=== PATIENT | female | born 1945 | race Caucasian/White ===

== ENCOUNTER 2017-11-08 20:12 | Emergency (ER) | payer MEDICARE ==
[2017-11-08 22:01] LABS: Alanine Aminotransferase 21 units/L (7-56); BUN/Creatinine Ratio 20; Blood Urea Nitrogen 10 mg/dL (7-17); Calcium 9.2 mg/dL (8.4-10.2); Hemolysis Index 8
[2017-11-08 22:18] LABS: Hematocrit 48.5 % (30.3-42.9); Hemoglobin 16.4 gm/dl (10.1-14.3); Mean Corpuscular HGB Conc 34 % (30-34); Mean Corpuscular Hemoglobin 31 pg (28-32); Mean Corpuscular Volume 92 fl (79-97); Platelet Count 232 K/mm3 (140-440); Red Blood Count 5.26 M/mm3 (3.65-5.03); Red Cell Distribution Width 13.8 % (13.2-15.2)
[2017-11-09] MEDS ORDERED: LEVAQUIN 500MG/100ML 500 MG/100 ML BAG IV ONE (00:57)
--- NOTE | 2017-11-09 01:02 | Emergency Department Report ---
ED Abdominal Pain HPI - General Chief Complaint: Urogenital-Female Stated Complaint: CAN NOT URINATE Time Seen by Provider: 11/09/17 00:52 Source: patient Mode of arrival: Wheelchair Limitations: No Limitations - History of Present Illness Initial Comments: Patient is 72 years old female with history of CABG and hypertension. Patient presented to the ER complaining of inability to urinate and constipation associated with lower abdominal pain for the last 3 days. Patient has is translating, he stated that there is no urine output since yesterday morning. She also had a low-grade fever. MD Complaint: abdominal pain -: days(s) Location: suprapubic Radiation: none Migration to: no migration Severity: moderate Severity scale (0 -10): 4 Quality: cramping, fullness Associated Symptoms: nausea - Related Data Allergies Allergy/AdvReac Type Severity Reaction Status Date / Time Penicillins Allergy Unknown Verified 11/08/17 21:01 ED Review of Systems ROS: Stated complaint: CAN NOT URINATE Other details as noted in HPI Comment: All other systems reviewed and negative Respiratory: denies: cough, shortness of breath, SOB with exertion Cardiovascular: denies: chest pain, palpitations Gastrointestinal: abdominal pain, nausea. denies: diarrhea, constipation, hematemesis, hematochezia Neurological: denies: headache, numbness, paresthesias ED Past Medical Hx - Past Medical History Hx Diabetes: Yes (pre-diabetics) Hx Arthritis: Yes Additional medical history: pt cannot walk due to osteroarthritis, uses wheelchair - Surgical History Hx Open Heart Surgery: Yes Additional Surgical History: Cabbage 4stents - Social History Smoking Status: Never Smoker Substance Use Type: None ED Physical Exam - General Limitations: No Limitations General appearance: alert, in no apparent distress - Head Head exam: Present: atraumatic, normocephalic, normal inspection - Eye Eye exam: Present: normal appearance, PERRL - ENT ENT exam: Present: normal exam, normal orophraynx, mucous membranes moist - Neck Neck exam: Present: normal inspection, full ROM. Absent: tenderness, meningismus - Respiratory Respiratory exam: Present: normal lung sounds bilaterally. Absent: respiratory distress, wheezes, rales, rhonchi, stridor, accessory muscle use, decreased breath sounds, prolonged expiratory - Cardiovascular Cardiovascular Exam: Present: regular rate, normal rhythm, normal heart sounds - GI/Abdominal GI/Abdominal exam: Present: soft, tenderness (suprapubic), normal bowel sounds. Absent: distended, guarding, rebound, rigid, mass, bruit, pulsatile mass, hernia - Rectal Rectal exam: Present: normal rectal tone, hemorrhoids. Absent: black stool, bloody stool, fecal impaction, mass, tenderness - Extremities Exam Extremities exam: Present: normal inspection, full ROM, normal capillary refill - Back Exam Back exam: Present: normal inspection, full ROM. Absent: tenderness, CVA tenderness (R), CVA tenderness (L), muscle spasm, paraspinal tenderness, vertebral tenderness - Neurological Exam Neurological exam: Present: alert, oriented X3, CN II-XII intact, normal gait - Skin Skin exam: Present: warm, intact, normal color ED Course Vital Signs 11/08/17 11/09/17 20:53 03:33 Temperature 99.4 F 98.6 F Pulse Rate 104 H 91 H Respiratory 18 17 Rate Blood Pressure 137/88 Blood Pressure 125/74 [Left] O2 Sat by Pulse 97 97 Oximetry - Reevaluation(s) Reevaluation #1: 11/09/17 04:15 Patient stated that she is feeling much better. ED Medical Decision Making - Lab Data Result diagrams: 11/08/17 21:31 11/08/17 21:31 - Radiology Data Radiology results: report reviewed CT abdomen and pelvis showed probable prostatitis. - Medical Decision Making Patient stated that she is feeling better. CT abdomen and pelvis showed prostatitis. Patient had constipation and urinary retention. Virk catheter inserted in the ER then 900 mL. Patient received Levaquin IV. We'll leave the Virk catheter in place and patient will need to follow-up with our primary care physician. Patient also need a referral to a surgeon for hemorrhoids. I gave her doctor Sabino To Follow with. Critical care attestation.: If time is entered above; I have spent that time in minutes in the direct care of this critically ill patient, excluding procedure time. ED Disposition Clinical Impression: Abdominal pain, Urine retention, Constipation, Proctitis, Hemorrhoid Disposition: TO HOME OR SELFCARE Is pt being admited?: No Condition: Stable Instructions: Proctitis (ED), Hemorrhoids (ED), Acute Urinary Retention in Women (ED), Constipation (ED) Referrals: PRIMARY CARE, [Primary Care Provider] - 3-5 Days CHENTE MCRAE DO [Staff Physician] - 3-5 Days JENNIFER BANGURA MD [Staff Physician] - 3-5 Days
[2017-11-09 02:10] LABS: Bilirubin,Urine NEG (Negative); Blood,Urine NEG (Negative); Color,Urine Yellow (Yellow); Protein,Urine <15 mg/dL mg/dL (Negative); Urobilinogen,Urine < 2.0 mg/dL (<2.0)
--- NOTE | 2017-11-09 03:42 | Cat Scan Report ---
FINAL REPORT EXAM: CT ABDOMEN PELVIS W CON HISTORY: abdominal pain TECHNIQUE: Routine axial imaging was obtained of the abdomen and pelvis following the intravenous injection of 100 cc of Omnipaque 300. Delayed imaging was obtained through the kidneys ureters and bladder. Routine sagittal coronal reconstructions otherwise were obtained. FINDINGS: The lung bases do not show any infiltrates or effusions. There is a small hiatal hernia. The liver is normal size reveals slightly diminished attenuation suggesting hepatic steatosis. There are small cysts in the right hepatic lobe measure up to 6 millimeters in diameter. The gallbladder is normal size reveal several dependent stones. The biliary tree is not dilated. The pancreas is normal size and reveals a 14.4 cystic lesion in the tail. This is non specific. There is no evidence of pancreatitis. The adrenal glands and spleen appear normal. The kidneys enhance normally. There is a 4.1 mm cyst in the left kidney. There calcification of the abdominal aorta. The vascular structures otherwise enhance normally. The bowel loops are normal in caliber. There is circumferential mucosal thickening in the rectum with reticulation of the perirectal fat. The findings are suspicious for proctitis. The remainder of the colon otherwise is unremarkable. Adenopathy is not seen. The uterus has a lobulated contour. Underlying fibroids cannot be excluded. There is a Virk catheter in the bladder. The skeletal structures reveal multilevel disc degeneration in the lumbar spine. IMPRESSION: Circumferential mucosal thickening in the rectum with reticulation of the perirectal fat suspicious for proctitis. No evidence of additional inflammatory changes in the remainder of the colon. Small benign cysts in the liver and left kidney. 14.4 mm cystic lesion of the tail of pancreas. A follow-up study is recommended 3-6 months to confirm stability. Gallstones. No secondary signs of acute cholecystitis. Normal appendix. Lobulated contour of the uterus. Underlying fibroids cannot be excluded. Multilevel disc degeneration in the lumbar spine.
[2017-11-09 05:31] VITALS: BP 104/64
== END 2017-11-09 05:31 | disposition home or self-care (01) ==
LOC: ED 20:12
DX: R33.9 Retention of urine, unspecified (principal); K59.00 Constipation, unspecified; Z88.0 Allergy status to penicillin; E11.9 Type 2 diabetes mellitus without complications; Z98.1 Arthrodesis status
CPT/HCPCS: 36415; 51702; 74177; 80053; 81001; 85027; 87040; 96365; 99284; J1956; Q9967